=== PATIENT | female | born 1960 | race Caucasian/White ===

== ENCOUNTER 2019-05-01 10:48 | Day surgery (SDC) | payer BC ==
[~2019-05-01] VITALS: Ht 170.2 cm; Wt 77.1 kg
[2019-05-01] MEDS ORDERED: ACYCLOVIR200 MG PO (11:08)
--- NOTE | 2019-05-01 12:15 | NUR ---
05/01/19 1215 iLsa Lorenzana 1209- PT ARRIVES TO PACU ALERT. RESP EVEN AND UNLABORED. OXYGEN SAT HIGH 90'S TO 100% ON 3L VIA NC. 1214- OXYGEN TURNED OFF. OXYGEN SAT HIGH 90'S ON RA.
--- NOTE | 2019-05-02 20:09 | OR ---
[facility] [address] [place], [place] [address] Signed DATE OF OPERATION: 05/01/2019 SURGEON: Filippo Oliver MD PREOPERATIVE DIAGNOSIS: History of adenomatous polyps greater than 7 years ago in [place], [place]. POSTOPERATIVE DIAGNOSES: 1. Sigmoid diverticulosis. 2. Small adenomatous polyp at 30 cm (excised). PROCEDURE PERFORMED: Total colonoscopy to cecum with cold morcellation polypectomy x1. ANESTHESIA: Intravenous sedation with fentanyl 100 mcg and Versed 5 mg. INDICATION: This 58-year-old white woman works in [place], though she lives in [place]. She is a patient of Dr. Stefania Angeles of [place], [place]. She underwent colonoscopy greater than 7 years ago in [place], [place], where she was found to have at least 2 adenomatous polyps. She is generally symptom-free at this time. 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 She has medicine for this (acyclovir). She is admitted at this time to undergo colonoscopy. She understands the risks of bleeding, infection, and perforation. FINDINGS: The prep was excellent. Complete colonoscopy was undertaken to the cecum without problem. There were numerous diverticula, though small, in the sigmoid. A small adenomatous polyp at 30 cm was noted. This was excised with cold morcellation technique. As regard to the perineum, there were no vesicles or other signs of active infectious inflammation and no erythema at this point actually. There were no other findings of concern. PROCEDURE: The patient was brought to the endoscopy suite and placed in lateral decubitus position. Given intravenous sedation to the point of slurred speech and nystagmus with full cardiopulmonary monitoring. Perineal examination showed no sign of vesicular eruption or sign of erythema or sign of infection in any way. Digital rectal examination showed normal sphincter tone and no rectal neoplasm. Electronically Signed By: FILIPPO OLIVER MD 05/02/192008 PATIENT NAME: SUZI LINDSAY OPERATIVE REPORT DATE OF : 62 REPORT #: [id number] PHYSICIAN: FILIPPO OLIVER MD PCP: STEFANIA ANGELES MD REPORT IS CONFIDENTIAL AND NOT TO BE RELEASED WITHOUT AUTHORIZATION [facility] [address] [place], [place] [address] Signed An Olympus videocolonoscope was passed in the rectum and manipulated throughout the colon ultimately intubating the cecum itself. Diverticula are seen in the sigmoid. Once the cecum was well identified including the ileocecal valve and appendiceal orifice, the scope was withdrawn. Careful examination upon withdrawal of scope showed no sign of abnormality until approximately 30 cm from the anal verge where a small adenomatous polyp was noted. This was excised with cold morcellation technique. Further withdrawal of scope showed no other abnormality. The rectum was normal. Retroflexed view was normal as well. Scope was removed and the patient taken to recovery room in good condition. CONCLUDING DIAGNOSIS: 1. Diverticular changes sigmoid, minimal. 2. Small polyp x1 excised. PLAN: Recommend repeat colonoscopy in 3 years, sooner if clinically indicated. Recommend also high-fiber diet. She will return to the ongoing care of Dr. Angeles in [place], [place]. Filippo Oliver MD JM/MODL /[id number] cc: Stefania Angeles MD Copies: STEFANIA ANGELES MD ~ Electronically Signed By: FILIPPO OLIVER MD 05/02/192008 PATIENT NAME: SUZI LINDSAY OPERATIVE REPORT DATE OF : 62 REPORT #: [id number] PHYSICIAN: FILIPPO OLIVER MD PCP: STEFANIA ANGELES MD REPORT IS CONFIDENTIAL AND NOT TO BE RELEASED WITHOUT AUTHORIZATION
== END 2019-05-01 12:55 | disposition home or self-care (01) ==
LOC: DS 10:48 → OPS 10:48 → DS 12:00 → OPS 12:55
PROVIDERS: Surgery
PROC: 0DBE8ZZ Excision of Large Intestine, Via Natural or Artificial Opening Endoscopic (ICD-10-PCS; principal; 2019-05-01 12:00)
DX: Z12.11 Encounter for screening for malignant neoplasm of colon (principal); D12.6 Benign neoplasm of colon, unspecified; K57.30 Diverticulosis of large intestine without perforation or abscess without bleeding; Z72.89 Other problems related to lifestyle; Z86.010 Personal history of colon polyps
CPT/HCPCS: 99153; G0500; J2250; J3010; J7120

== ENCOUNTER 2024-04-12 12:51 | Emergency (ER) | payer BC ==
[~2024-04-12] VITALS: Ht 167.6 cm; Wt 59.7 kg
[~2024-04-12 12:51] MED LIST: ACYCLOVIR200 MG PO
[2024-04-12 13:12] LABS: HEMOGLOBIN 13.2 g/dL (12.0-18.0); MCV 87.1 fl (81-99)
[2024-04-12 13:15] LABS: BASOPHILS 0.6 % (0-2); EOSINOPHILS 1.1 % (0-6); LYMPHOCYTES 27.9 % (24-44); MCH 28.8 (27-36); MONOCYTES 7.2 % (0-12); NEUTROPHILS 63.2 % (39-80); PLATELET COUNT 254 K/uL (140-440); RDW 13.2 (10.5-15.0)
[2024-04-12] MEDS ORDERED: dilTIAZem HCL 25 MG/5 ML VIAL IV ONE (13:15)
[2024-04-12 13:27] LABS: ALBUMIN 3.7 g/dL (3.4-5.0); ALBUMIN/GLOBULIN RATIO 1.03 (1.1-2.4); ANION GAP 17.4 (7-21); BILIRUBIN, TOTAL 0.8 ng/dL (0.2-1.0); BUN/CREATININE RATIO 19.44 (6.0-28.6); CALCIUM 10.2 mg/dL (8.5-10.1); CREATININE, SERUM 0.72 mg/dL (0.55-1.02); MAGNESIUM 1.6 mg/dL (1.8-2.4); POTASSIUM 3.4 mmol/L (3.5-5.1); PROTEIN, TOTAL 7.3 g/dL (6.4-8.2)
[2024-04-12] MEDS ORDERED: POTASSIUM CHLORIDE 10 MEQ TABCR PO ONE (13:45)
[2024-04-12] MEDS ORDERED: MAGNESIUM SULFATE 2 GM/50 ML BAG IV ONE (13:45)
[2024-04-12] MEDS ORDERED: dilTIAZem HCL 180 MG CAPCR PO ONE (14:00)
[2024-04-12] MEDS ORDERED: K-TAB ER20 MEQ PO (15:58)
[2024-04-12] MEDS ORDERED: PANTOPRAZOLE SODIUM 40 MG TABEC PO ONE (16:00)
[2024-04-12 16:20] VITALS: BP 121/76
--- NOTE | 2024-04-14 07:07 | EKG ---
[facility] [address] [facility] [place] [address] Signed Atrial fibrillation with rapid ventricular response Cannot rule out Anteroseptal infarct , age undetermined Abnormal ECG No previous ECGs available Confirmed by Indira Biggs ([id number]) on 04/14/2024 7:07:40 AM Electronically Signed By: INDIRA BIGGS MD 04/14/24706 PATIENT NAME: SUZI LINDSAY Electrocardiogram DATE OF : 62 PHYSICIAN: INDIRA BIGGS MD REPORT #: [id number] REPORT IS CONFIDENTIAL AND NOT TO BE RELEASED WITHOUT AUTHORIZATION
== END 2024-04-12 16:16 | disposition home or self-care (01) ==
LOC: ED 12:51
PROVIDERS: Emergency Medicine
DX: I48.91 Unspecified atrial fibrillation (principal); R10.13 Epigastric pain
CPT/HCPCS: 36415; 71045; 74177; 80053; 83735; 84484; 85025; 93005; 93010; 96375; 99285-25; A9270; J3475

== ENCOUNTER 2024-09-13 20:58 | Emergency (ER) | payer BC ==
[~2024-09-13] VITALS: Ht 167.6 cm; Wt 62.9 kg
[~2024-09-13 20:58] MED LIST changes: +ACYCLOVIR400 MG PO; +ASPIRIN REGIMEN81 MG PO; +DAILY VITE1 EAC1 PO; +K-TAB ER20 MEQ PO; +METHIMAZOLE5 MG PO; +METOPROLOL TART25 MG PO
[2024-09-13] MEDS ORDERED: OMEPRAZOLE20 MG PO (21:08)
[2024-09-13] MEDS ORDERED: CHOLESTYRAMINE378 GM PO (21:08)
[2024-09-13] MEDS ORDERED: FAMOTIDINE40 MG PO (21:08)
[2024-09-13] MEDS ORDERED: HYDROXYZINE HCL25 MG PO (21:08)
[2024-09-13] MEDS ORDERED: NITROGLYCERIN 0.4 MG SUBL SL PRN (21:15)
[2024-09-13] MEDS ORDERED: ASPIRIN 81 MG CHEW PO ONE (21:15)
[2024-09-13 21:17] LABS: BASOPHILS 0.4 % (0-2); EOSINOPHILS 1.4 % (0-6); HEMOGLOBIN 13.8 g/dL (12.0-18.0); LYMPHOCYTES 32.8 % (24-44); MCH 32.5 (27-36); MCHC 34.5 g/dl (30-36); MCV 94.1 fl (81-99); MONOCYTES 6.6 % (0-12); NEUTROPHILS 58.8 % (39-80); PLATELET COUNT 266 K/uL (140-440); RBC 4.25 M/ul (4.3-5.7); RDW 13.5 (10.5-15.0)
[2024-09-13 21:32] LABS: ALBUMIN 3.8 g/dL (3.4-5.0); ALBUMIN/GLOBULIN RATIO 0.97 (1.1-2.4); ANION GAP 11.6 (7-21); BILIRUBIN, TOTAL 0.6 ng/dL (0.2-1.0); BUN/CREATININE RATIO 14.6 (6.0-28.6); CALCIUM 9.2 mg/dL (8.5-10.1); CREATININE, SERUM 0.89 mg/dL (0.55-1.02); MAGNESIUM 2.1 mg/dL (1.8-2.4); POTASSIUM 3.6 mmol/L (3.5-5.1); PROTEIN, TOTAL 7.7 g/dL (6.4-8.2)
[2024-09-13 23:00] VITALS: BP 143/88
--- NOTE | 2024-09-14 20:51 | EKG ---
[facility] [address] [facility] [place] [address] Signed Normal sinus rhythm Incomplete right bundle branch block Cannot rule out Anteroseptal infarct , age undetermined Abnormal ECG When compared with ECG of 22-APR-2024 07:59, Sinus rhythm has replaced Atrial fibrillation Vent. rate has decreased BY 34 BPM Minimal criteria for Anteroseptal infarct are now present QT has shortened Confirmed by Neetu Reynolds MD ([id number]) on 09/14/2024 8:51:15 PM Electronically Signed By: NEETU REYNOLDS DO 09/14/242050 PATIENT NAME: SUZI LINDSAY Electrocardiogram DATE OF : 62 PHYSICIAN: NEETU REYNOLDS DO REPORT #: [id number] REPORT IS CONFIDENTIAL AND NOT TO BE RELEASED WITHOUT AUTHORIZATION
== END 2024-09-13 23:00 | disposition home or self-care (01) ==
LOC: ED 20:58
PROVIDERS: Internal Medicine
DX: R07.89 Other chest pain (principal); E03.9 Hypothyroidism, unspecified; Z79.899 Other long term (current) drug therapy; Z79.82 Long term (current) use of aspirin
CPT/HCPCS: 36415; 71045; 80053; 83735; 84484; 85025; 93005; 93010; 99285-25